=== PATIENT | male | born 1975 | race Hispanic/Latino ===

== ENCOUNTER 2020-08-23 01:11 | Inpatient (IN) | payer MEDICARE, OTHER ==
[~2020-08-23] VITALS: Ht 182.9 cm; Wt 72.1 kg
[2020-08-23] VITALS (16 sets, daily range): BP systolic 104–133; BP diastolic 61–84
[~2020-08-23 01:11] MED LIST: GLIMEPIRIDE4 MG PO; IMIPRAMINE HCL50 MG PO; METFORMIN HCL1000 MG PO; OMEPRAZOLE20 MG PO; PRAVASTATIN SOD40 MG PO; SERTRALINE HCL100 MG PO; TRAZODONE HCL50 MG PO; ZESTRIL20 MG PO
[2020-08-23] MEDS ORDERED: DEXTROSE 50% SYRINGE 50 ML IV ONE ×2 (01:32→02:01)
[2020-08-23] MEDS ORDERED: DEXTROSE 10% 1,000 ML IV STA (01:44)
[2020-08-23] MEDS ORDERED: DEXTROSE 5%/0.45% SOD CHL 1,000 ML IV ONE (01:45)
[2020-08-23 01:58] LABS: BASOPHILS % 0.2 % (0.0-1.0); EOSINOPHILS % 0.4 % (0.0-6.0); HEMATOCRIT 32.8 % (38.2-49.6); HEMOGLOBIN 10.8 g/dL (14.0-18.0); LYMPHOCYTES # (AUTO) 0.8 (1.0-3.2); LYMPHOCYTES % 9.8 % (18.0-39.1); MEAN CORPUSCULAR HGB CONC 32.9 g/dL (31-35); MEAN CORPUSCULAR VOLUME 94.3 fL (81-99); MONOCYTES # (AUTO) 0.5 (0.2-0.8); MONOCYTES % 6.6 % (4.4-11.3); NEUTROPHILS # (AUTO) 6.7 (2.1-6.9); NEUTROPHILS % 81.9 % (38.7-80.0); PLATELET COUNT 54 x10e3/uL (140-360); RED BLOOD COUNT 3.48 x10e6/uL (4.3-5.7); RED CELL DISTRIBUTION WIDTH 14.7 % (11.7-14.4)
[2020-08-23] MEDS ORDERED: DEXTROSE 10% 1,000 ML IV ONE ×3 (01:59→17:22)
[2020-08-23] MEDS ORDERED: ASPIRIN 81 MG CHEW TAB PO ONE (02:00)
[2020-08-23] MEDS ORDERED: DEXTROSE 50% SYRINGE 50 ML IV STA ×2 (02:01)
[2020-08-23] MEDS ORDERED: DEXTROSE 50% SYRINGE 50 ML IV PRN ×2 (02:15→04:45)
[2020-08-23 02:17] LABS: ALANINE AMINOTRANSFERASE 45 IU/L (0-55); ALBUMIN 2.1 g/dL (3.5-5.0); ALBUMIN/GLOBULIN RATIO 0.6 (0.8-2.0); ALKALINE PHOSPHATASE 98 IU/L (40-150); ANION GAP 12.7 mmol/L (8-16); BLOOD UREA NITROGEN 20 mg/dL (7-26); BUN/CREATININE RATIO 18 (6-25); CALCIUM 7.5 mg/dL (8.4-10.2); CARBON DIOXIDE 22 mmol/L (22-29); CHLORIDE 107 mmol/L (98-107); CREATINE KINASE 284 IU/L (30-200); CREATININE, SERUM 1.11 mg/dL (0.72-1.25); EST GLOMERULAR FILTRATION RATE > 60 ML/MIN (60-); GLUCOSE 85 mg/dL (74-118); SODIUM 139 mmol/L (136-145)
[2020-08-23 02:18] LABS: POTASSIUM 2.7 mmol/L (3.5-5.1)
[2020-08-23] MEDS ORDERED: POTASSIUM CHLORIDE 20 MEQ TAB CR PO STA (02:26)
[2020-08-23] MEDS ORDERED: POTASSIUM CHLORIDE 20MEQ/15ML UDC PO ONE (02:30)
[2020-08-23] MEDS ORDERED: POTASSIUM CHLORIDE 10MEQ/100ML 100 ML IV ONE ×2 (02:30→04:15)
[2020-08-23] MEDS ORDERED: LACTULOSE20 GM/30 M PO (02:47)
[2020-08-23] MEDS ORDERED: FUROSEMIDE40 MG PO (02:47)
[2020-08-23] MEDS ORDERED: LACTULOSE SYRUP 20 GM/30 ML UDC ONE (03:26)
[2020-08-23] MEDS ORDERED: LACTULOSE SYRUP 20 GM/30 ML UDC PO ONE (03:30)
[2020-08-23] MEDS: RIFAXIMIN 550 MG TABLET PO SCH ×2 (11:04→21:48)
[2020-08-23] MEDS: CEFTRIAXONE SOD 1 GM/NS 50 ML 50 ML IV SCH (11:04)
[2020-08-23] MEDS: LACTULOSE SYRUP 20 GM/30 ML UDC PO SCH ×2 (11:04→18:13)
[2020-08-23] MEDS: PANTOPRAZOLE SOD 40 MG TABEC PO SCH (11:04)
[2020-08-23] MEDS: OCTREOTIDE ACETATE 0.05 MG/ML AMP SQ SCH ×2 (13:37→18:56)
[2020-08-23 14:13] LABS: INR 1.9; PROTHROMBIN TIME 22.7 seconds (11.9-14.5)
[2020-08-23 14:15] LABS: PARTIAL THROMBOPLASTIN TIME 44.5 seconds (23.8-35.5)
[2020-08-23 14:20] LABS: ANION GAP 9.1 mmol/L (8-16); BLOOD UREA NITROGEN 22 mg/dL (7-26); BUN/CREATININE RATIO 22 (6-25); CALCIUM 7.4 mg/dL (8.4-10.2); CARBON DIOXIDE 24 mmol/L (22-29); CHLORIDE 106 mmol/L (98-107); CREATININE, SERUM 0.98 mg/dL (0.72-1.25); EST GLOMERULAR FILTRATION RATE > 60 ML/MIN (60-); GLUCOSE 108 mg/dL (74-118); MAGNESIUM 1.8 MG/DL (1.3-2.1); PHOSPHORUS 2.5 MG/DL (2.3-4.7); POTASSIUM 3.1 mmol/L (3.5-5.1); SODIUM 136 mmol/L (136-145)
[2020-08-23 14:40] LABS: CREATINE KINASE MB 6.3 ng/mL (0-5.0)
[2020-08-23] MEDS ORDERED: POTASSIUM CHLORIDE 10MEQ EA PO ONE (15:30)
[2020-08-23 16:15] LABS: CLARITY,URINE SL CLOUDY (CLEAR); COLOR,URINE YELLOW (YELLOW); LEUKOCYTE ESTERASE ,URINE NEGATIVE (NEGATIVE); NITRITE,URINE NEGATIVE (NEGATIVE); PROTEIN,URINE DIPSTICK 1+ (NEGATIVE)
[2020-08-23 16:16] LABS: KETONES,URINE NEGATIVE (NEGATIVE); URINE UROBILINOGEN 1 mg/dL (0.2 - 1)
[2020-08-23 16:18] LABS: WBC,URINE (MAN) 0-5 /HPF (0-5)
[2020-08-23 16:19] LABS: BACTERIA,URINE FEW /HPF; EPITHELIAL CELLS,URINE RARE /LPF; RBC,URINE >50 /HPF (0-5)
[2020-08-23] MEDS ORDERED: DEXTROSE 10% 1,000 ML IV SCH (17:30)
[2020-08-23] MEDS: SERTRALINE HCL 100 MG TAB PO SCH (21:48)
[2020-08-24] VITALS (16 sets, daily range): BP systolic 110–148; BP diastolic 65–98
[2020-08-24 05:14] LABS: BASOPHILS % 0.1 % (0.0-1.0); EOSINOPHILS # (AUTO) 0.1 (0.0-0.4); EOSINOPHILS % 1.4 % (0.0-6.0); HEMATOCRIT 32.7 % (38.2-49.6); HEMOGLOBIN 10.7 g/dL (14.0-18.0); LYMPHOCYTES # (AUTO) 1.3 (1.0-3.2); LYMPHOCYTES % 16.5 % (18.0-39.1); MEAN CORPUSCULAR HEMOGLOBIN 30.8 pg (28-32); MEAN CORPUSCULAR HGB CONC 32.7 g/dL (31-35); MEAN CORPUSCULAR VOLUME 94.2 fL (81-99); MONOCYTES # (AUTO) 0.6 (0.2-0.8); MONOCYTES % 7.2 % (4.4-11.3); NEUTROPHILS # (AUTO) 5.7 (2.1-6.9); NEUTROPHILS % 73.5 % (38.7-80.0); PLATELET COUNT 56 x10e3/uL (140-360); RED BLOOD COUNT 3.47 x10e6/uL (4.3-5.7); RED CELL DISTRIBUTION WIDTH 14.8 % (11.7-14.4)
[2020-08-24 05:31] LABS: ALANINE AMINOTRANSFERASE 40 IU/L (0-55); ALBUMIN 1.9 g/dL (3.5-5.0); ALBUMIN/GLOBULIN RATIO 0.5 (0.8-2.0); ALKALINE PHOSPHATASE 90 IU/L (40-150); ANION GAP 8.6 mmol/L (8-16); BLOOD UREA NITROGEN 24 mg/dL (7-26); BUN/CREATININE RATIO 24 (6-25); CALCIUM 7.4 mg/dL (8.4-10.2); CARBON DIOXIDE 26 mmol/L (22-29); CHLORIDE 106 mmol/L (98-107); CREATININE, SERUM 1.02 mg/dL (0.72-1.25); EST GLOMERULAR FILTRATION RATE > 60 ML/MIN (60-); POTASSIUM 3.6 mmol/L (3.5-5.1); SODIUM 137 mmol/L (136-145)
[2020-08-24 05:41] LABS: GLUCOSE 56 mg/dL (74-118)
[2020-08-24] MEDS: OCTREOTIDE ACETATE 0.05 MG/ML AMP SQ SCH ×2 (06:00)
[2020-08-24 06:12] LABS: CREATINE KINASE MB 2.9 ng/mL (0-5.0)
[2020-08-24 06:20] LABS: FERRITIN 121.44 ng/mL (21.81-274.66)
[2020-08-24] MEDS: LACTULOSE SYRUP 20 GM/30 ML UDC PO SCH ×2 (08:38→17:57)
[2020-08-24] MEDS: CEFTRIAXONE SOD 1 GM/NS 50 ML 50 ML IV SCH (08:38)
[2020-08-24] MEDS: PANTOPRAZOLE SOD 40 MG TABEC PO SCH (08:39)
[2020-08-24] MEDS: RIFAXIMIN 550 MG TABLET PO SCH ×2 (08:39→21:14)
[2020-08-24] MEDS ORDERED: POTASSIUM CHLORIDE 10MEQ EA PO SCH (09:00)
[2020-08-24] MEDS: PIPER-TAZ 3.375 GM 50 ML IV SCH ×2 (11:42→17:57)
[2020-08-24] MEDS: DEXTROSE 5% 1,000 ML IV SCH (13:31)
[2020-08-24] MEDS: SERTRALINE HCL 100 MG TAB PO SCH ×2 (21:15→21:16)
[2020-08-25] VITALS (15 sets, daily range): BP systolic 118–138; BP diastolic 73–86
[2020-08-25] MEDS: PIPER-TAZ 3.375 GM 50 ML IV SCH ×4 (00:55→17:21)
[2020-08-25] MEDS: RIFAXIMIN 550 MG TABLET PO SCH ×2 (08:36→21:10)
[2020-08-25] MEDS: LACTULOSE SYRUP 20 GM/30 ML UDC PO SCH ×2 (08:36→17:21)
[2020-08-25] MEDS: PANTOPRAZOLE SOD 40 MG TABEC PO SCH (08:36)
[2020-08-25] MEDS ORDERED: IRON SUCROSE 100 MG in SODIUM CHLORIDE 0.9% 100 ML 100 ML IV SCH (09:00)
[2020-08-25] MEDS: DEXTROSE 5% 1,000 ML IV SCH ×2 (09:53→20:14)
[2020-08-25] MEDS: FUROSEMIDE 40 MG TAB PO SCH (10:33)
[2020-08-25] MEDS: POTASSIUM CHLORIDE 10MEQ EA PO SCH (10:33)
[2020-08-25] MEDS: TRAMADOL HCL 50 MG TAB PO PRN (10:33)
[2020-08-25] MEDS ORDERED: SODIUM CHLORIDE 0.9% 50ML 50 ML ONE (12:43)
[2020-08-25] MEDS ORDERED: IOPAMIDOL 370 MG/ML 200 ML INFUS..BTL INJ ONE (12:44)
[2020-08-25] MEDS: SERTRALINE HCL 100 MG TAB PO SCH (21:10)
[2020-08-26] VITALS (9 sets, daily range): BP systolic 120–127; BP diastolic 63–83
[2020-08-26] MEDS: PIPER-TAZ 3.375 GM 50 ML IV SCH ×2 (06:13)
[2020-08-26] MEDS: TRAMADOL HCL 50 MG TAB PO PRN ×2 (06:21→12:53)
[2020-08-26 06:50] LABS: BASOPHILS % 0.3 % (0.0-1.0); EOSINOPHILS % 0.4 % (0.0-6.0); HEMATOCRIT 30.9 % (38.2-49.6); HEMOGLOBIN 10.1 g/dL (14.0-18.0); LYMPHOCYTES # (AUTO) 0.8 (1.0-3.2); LYMPHOCYTES % 9.6 % (18.0-39.1); MEAN CORPUSCULAR HEMOGLOBIN 30.8 pg (28-32); MEAN CORPUSCULAR HGB CONC 32.7 g/dL (31-35); MEAN CORPUSCULAR VOLUME 94.2 fL (81-99); MONOCYTES # (AUTO) 1.2 (0.2-0.8); MONOCYTES % 15.6 % (4.4-11.3); NEUTROPHILS # (AUTO) 5.5 (2.1-6.9); NEUTROPHILS % 69.4 % (38.7-80.0); RED BLOOD COUNT 3.28 x10e6/uL (4.3-5.7); RED CELL DISTRIBUTION WIDTH 14.8 % (11.7-14.4)
[2020-08-26 07:05] LABS: PLATELET COUNT 46 x10e3/uL (140-360)
[2020-08-26 07:07] LABS: ALANINE AMINOTRANSFERASE 30 IU/L (0-55); ALBUMIN 1.8 g/dL (3.5-5.0); ALBUMIN/GLOBULIN RATIO 0.5 (0.8-2.0); ALKALINE PHOSPHATASE 134 IU/L (40-150); ANION GAP 9.6 mmol/L (8-16); BLOOD UREA NITROGEN 19 mg/dL (7-26); BUN/CREATININE RATIO 17 (6-25); CALCIUM 7.3 mg/dL (8.4-10.2); CARBON DIOXIDE 24 mmol/L (22-29); CHLORIDE 104 mmol/L (98-107); CHOL/HDL RATIO 3.8 (3.9-4.7); CHOLESTEROL 87 MD/DL (0-199); CREATININE, SERUM 1.13 mg/dL (0.72-1.25); EST GLOMERULAR FILTRATION RATE > 60 ML/MIN (60-); GLUCOSE 107 mg/dL (74-118); HDL CHOLESTEROL 23 MG/DL (40-60); LDL CHOLESTEROL 50 MG/DL (60-130); POTASSIUM 3.6 mmol/L (3.5-5.1); SODIUM 134 mmol/L (136-145); TRIGLYCERIDES 70 MG/DL (0-149)
[2020-08-26] MEDS ORDERED: VANCOMYCIN 1GM/NS 250 ML 250 ML IV ONE (07:30)
[2020-08-26] MEDS ORDERED: IBUPROFEN 200 MG TAB PO PRN (07:30)
[2020-08-26] MEDS: FUROSEMIDE 40 MG TAB PO SCH (08:02)
[2020-08-26] MEDS: PANTOPRAZOLE SOD 40 MG TABEC PO SCH (08:02)
[2020-08-26] MEDS: LACTULOSE SYRUP 20 GM/30 ML UDC PO SCH ×2 (08:02→16:27)
[2020-08-26] MEDS: POTASSIUM CHLORIDE 10MEQ EA PO SCH (08:02)
[2020-08-26] MEDS: RIFAXIMIN 550 MG TABLET PO SCH ×2 (08:02→20:34)
[2020-08-26] MEDS ORDERED: SPIRONOLACTONE 25 MG TAB PO SCH (09:00)
[2020-08-26] MEDS ORDERED: IBUPROFEN 400 MG TAB PO PRN (10:15)
[2020-08-26] MEDS ORDERED: FUROSEMIDE INJ 10 MG/ML 4 ML VIAL IV SCH (12:00)
[2020-08-26] MEDS: VANCOMYCIN 1GM/NS 250 ML 250 ML IV SCH (20:30)
[2020-08-26] MEDS: SERTRALINE HCL 100 MG TAB PO SCH (20:34)
[2020-08-27] VITALS (8 sets, daily range): BP systolic 101–134; BP diastolic 63–81
[2020-08-27 02:59] LABS: CLARITY,URINE CLOUDY (CLEAR); COLOR,URINE AMBER (YELLOW); KETONES,URINE TRACE (NEGATIVE); LEUKOCYTE ESTERASE ,URINE NEGATIVE (NEGATIVE); NITRITE,URINE NEGATIVE (NEGATIVE); PROTEIN,URINE DIPSTICK 2+ (NEGATIVE); URINE UROBILINOGEN 0.2 mg/dL (0.2 - 1)
[2020-08-27 03:21] LABS: BACTERIA,URINE MANY /HPF; EPITHELIAL CELLS,URINE FEW /LPF; RBC,URINE >50 /HPF (0-5)
[2020-08-27 07:01] LABS: BASOPHILS % 0.3 % (0.0-1.0); EOSINOPHILS # (AUTO) 0.1 (0.0-0.4); EOSINOPHILS % 1.5 % (0.0-6.0); HEMATOCRIT 30.5 % (38.2-49.6); HEMOGLOBIN 9.9 g/dL (14.0-18.0); LYMPHOCYTES # (AUTO) 0.7 (1.0-3.2); LYMPHOCYTES % 9.4 % (18.0-39.1); MEAN CORPUSCULAR HGB CONC 32.5 g/dL (31-35); MEAN CORPUSCULAR VOLUME 95.6 fL (81-99); MONOCYTES # (AUTO) 0.8 (0.2-0.8); MONOCYTES % 11.2 % (4.4-11.3); NEUTROPHILS # (AUTO) 5.6 (2.1-6.9); NEUTROPHILS % 76.1 % (38.7-80.0); RED BLOOD COUNT 3.19 x10e6/uL (4.3-5.7); RED CELL DISTRIBUTION WIDTH 14.7 % (11.7-14.4)
[2020-08-27 07:08] LABS: PLATELET COUNT 41 x10e3/uL (140-360)
[2020-08-27 07:22] LABS: ANION GAP 10.7 mmol/L (8-16); BLOOD UREA NITROGEN 22 mg/dL (7-26); BUN/CREATININE RATIO 19 (6-25); CALCIUM 7.4 mg/dL (8.4-10.2); CARBON DIOXIDE 24 mmol/L (22-29); CHLORIDE 103 mmol/L (98-107); CREATININE, SERUM 1.13 mg/dL (0.72-1.25); EST GLOMERULAR FILTRATION RATE > 60 ML/MIN (60-); GLUCOSE 69 mg/dL (74-118); POTASSIUM 3.7 mmol/L (3.5-5.1); SODIUM 134 mmol/L (136-145)
[2020-08-27] MEDS ORDERED: ACETAMINOPHEN 325 MG TAB PO PRN (08:15)
[2020-08-27] MEDS: VANCOMYCIN 1GM/NS 250 ML 250 ML IV SCH ×2 (08:41→20:36)
[2020-08-27] MEDS: FUROSEMIDE INJ 10 MG/ML 4 ML VIAL IV SCH ×2 (08:41→17:33)
[2020-08-27] MEDS: SPIRONOLACTONE 25 MG TAB PO SCH ×2 (08:41→12:09)
[2020-08-27] MEDS: IRON-VITAMIN-MINERAL CAPSULE PO SCH ×2 (08:41→17:33)
[2020-08-27] MEDS: LACTULOSE SYRUP 20 GM/30 ML UDC PO SCH ×2 (08:42→17:33)
[2020-08-27] MEDS: RIFAXIMIN 550 MG TABLET PO SCH ×2 (08:42→20:36)
[2020-08-27] MEDS: PANTOPRAZOLE SOD 40 MG TABEC PO SCH (08:42)
[2020-08-27] MEDS: POTASSIUM CHLORIDE 10MEQ EA PO SCH (08:42)
[2020-08-27] MEDS: CEFTRIAXONE SOD 1 GM/NS 50 ML 50 ML IV SCH (08:51)
[2020-08-27] MEDS: SERTRALINE HCL 100 MG TAB PO SCH (20:41)
[2020-08-28] VITALS (12 sets, daily range): BP systolic 107–125; BP diastolic 64–77
[2020-08-28] MEDS: FUROSEMIDE INJ 10 MG/ML 4 ML VIAL IV SCH ×4 (01:09→22:05)
[2020-08-28 06:27] LABS: ANION GAP 11.5 mmol/L (8-16); BLOOD UREA NITROGEN 22 mg/dL (7-26); BUN/CREATININE RATIO 19 (6-25); CALCIUM 7.1 mg/dL (8.4-10.2); CARBON DIOXIDE 21 mmol/L (22-29); CHLORIDE 103 mmol/L (98-107); CREATININE, SERUM 1.18 mg/dL (0.72-1.25); EST GLOMERULAR FILTRATION RATE > 60 ML/MIN (60-); GLUCOSE 93 mg/dL (74-118); POTASSIUM 3.5 mmol/L (3.5-5.1); SODIUM 132 mmol/L (136-145)
[2020-08-28] MEDS: CEFTRIAXONE SOD 1 GM/NS 50 ML 50 ML IV SCH (07:38)
[2020-08-28] MEDS: TRAMADOL HCL 50 MG TAB PO PRN ×3 (07:46→14:57)
[2020-08-28] MEDS: VANCOMYCIN 1GM/NS 250 ML 250 ML IV SCH (08:25)
[2020-08-28] MEDS: SPIRONOLACTONE 25 MG TAB PO SCH ×2 (08:25→11:04)
[2020-08-28] MEDS: POTASSIUM CHLORIDE 10MEQ EA PO SCH (08:26)
[2020-08-28] MEDS: RIFAXIMIN 550 MG TABLET PO SCH ×2 (08:26→22:05)
[2020-08-28] MEDS: IRON-VITAMIN-MINERAL CAPSULE PO SCH ×2 (08:26→16:15)
[2020-08-28] MEDS: LACTULOSE SYRUP 20 GM/30 ML UDC PO SCH ×2 (08:26→16:15)
[2020-08-28] MEDS: PANTOPRAZOLE SOD 40 MG TABEC PO SCH (08:26)
[2020-08-28] MEDS ORDERED: PIPER-TAZ 3.375 GM 50 ML IV SCH (10:00)
[2020-08-28] MEDS: MIDODRINE HCL 5 MG TABLET PO SCH ×2 (11:04→16:15)
[2020-08-28] MEDS ORDERED: CEFTRIAXONE SOD 1 GM/NS 50 ML 50 ML IV SCH (12:00)
[2020-08-28] MEDS: SERTRALINE HCL 100 MG TAB PO SCH (22:05)
[2020-08-29] VITALS (7 sets, daily range): BP systolic 109–122; BP diastolic 65–75
[2020-08-29 05:00] LABS: ANION GAP 12.6 mmol/L (8-16); BLOOD UREA NITROGEN 21 mg/dL (7-26); BUN/CREATININE RATIO 19 (6-25); CALCIUM 7.1 mg/dL (8.4-10.2); CARBON DIOXIDE 22 mmol/L (22-29); CHLORIDE 104 mmol/L (98-107); CREATININE, SERUM 1.11 mg/dL (0.72-1.25); EST GLOMERULAR FILTRATION RATE > 60 ML/MIN (60-); GLUCOSE 91 mg/dL (74-118); POTASSIUM 3.6 mmol/L (3.5-5.1); SODIUM 135 mmol/L (136-145)
[2020-08-29] MEDS: FUROSEMIDE INJ 10 MG/ML 4 ML VIAL IV SCH ×3 (05:01→21:36)
[2020-08-29 05:16] LABS: MAGNESIUM 1.9 MG/DL (1.3-2.1); PHOSPHORUS 3.3 MG/DL (2.3-4.7)
[2020-08-29] MEDS ORDERED: PIPER-TAZ 3.375 GM 50 ML IV SCH (08:00)
[2020-08-29] MEDS ORDERED: VANCOMYCIN 1GM/NS 250 ML 250 ML IV SCH (09:00)
[2020-08-29] MEDS ORDERED: CEFTRIAXONE SOD 1 GM/NS 50 ML 50 ML IV SCH (09:00)
[2020-08-29] MEDS: LACTULOSE SYRUP 20 GM/30 ML UDC PO SCH ×2 (10:08→17:02)
[2020-08-29] MEDS: IRON-VITAMIN-MINERAL CAPSULE PO SCH ×2 (10:08→17:02)
[2020-08-29] MEDS: SPIRONOLACTONE 25 MG TAB PO SCH ×2 (10:08→13:13)
[2020-08-29] MEDS: RIFAXIMIN 550 MG TABLET PO SCH ×2 (10:08→21:36)
[2020-08-29] MEDS: MIDODRINE HCL 5 MG TABLET PO SCH ×3 (10:08→17:02)
[2020-08-29] MEDS: POTASSIUM CHLORIDE 10MEQ EA PO SCH (10:08)
[2020-08-29] MEDS: PANTOPRAZOLE SOD 40 MG TABEC PO SCH (10:08)
[2020-08-29] MEDS: TRAMADOL HCL 50 MG TAB PO PRN ×2 (10:14→17:18)
[2020-08-29] MEDS: CLINDAMYCIN 600MG / 50ML 50 ML IV SCH ×2 (13:13→21:36)
[2020-08-29] MEDS: SERTRALINE HCL 100 MG TAB PO SCH (21:36)
[2020-08-29] MEDS ORDERED: ONDANSETRON HCL INJ 2MG/ML 2ML 2 MG/ML VIAL IV PRN (22:15)
[2020-08-30] VITALS (9 sets, daily range): BP systolic 99–122; BP diastolic 56–75
[2020-08-30] MEDS: CLINDAMYCIN 600MG / 50ML 50 ML IV SCH ×3 (05:54→22:08)
[2020-08-30 06:18] LABS: BASOPHILS % 0.3 % (0.0-1.0); EOSINOPHILS # (AUTO) 0.1 (0.0-0.4); EOSINOPHILS % 0.7 % (0.0-6.0); HEMATOCRIT 29.5 % (38.2-49.6); HEMOGLOBIN 9.7 g/dL (14.0-18.0); LYMPHOCYTES # (AUTO) 0.9 (1.0-3.2); LYMPHOCYTES % 7.1 % (18.0-39.1); MEAN CORPUSCULAR HEMOGLOBIN 31.4 pg (28-32); MEAN CORPUSCULAR HGB CONC 32.9 g/dL (31-35); MEAN CORPUSCULAR VOLUME 95.5 fL (81-99); MONOCYTES % 7.9 % (4.4-11.3); NEUTROPHILS # (AUTO) 10.7 (2.1-6.9); NEUTROPHILS % 82.9 % (38.7-80.0); RED BLOOD COUNT 3.09 x10e6/uL (4.3-5.7); RED CELL DISTRIBUTION WIDTH 14.8 % (11.7-14.4)
[2020-08-30 06:38] LABS: ANION GAP 10.8 mmol/L (8-16); BLOOD UREA NITROGEN 21 mg/dL (7-26); BUN/CREATININE RATIO 19 (6-25); CALCIUM 7.1 mg/dL (8.4-10.2); CARBON DIOXIDE 24 mmol/L (22-29); CHLORIDE 104 mmol/L (98-107); CREATININE, SERUM 1.12 mg/dL (0.72-1.25); EST GLOMERULAR FILTRATION RATE > 60 ML/MIN (60-); GLUCOSE 103 mg/dL (74-118); POTASSIUM 3.8 mmol/L (3.5-5.1); SODIUM 135 mmol/L (136-145)
[2020-08-30 06:56] LABS: PLATELET COUNT 59 x10e3/uL (140-360)
[2020-08-30] MEDS: FUROSEMIDE INJ 10 MG/ML 4 ML VIAL IV SCH ×3 (07:12→22:08)
[2020-08-30 08:14] LABS: ANISOCYTOSIS SLIGHT; PLATELET ESTIMATE MARKEDLY DECREASED; PLATELET MORPHOLOGY COMMENT RARE EDTA CLUMPING; RBC MORPHOLOGY COMMENT NORMAL
[2020-08-30] MEDS ORDERED: TRAMADOL HCL 50 MG TAB PO PRN (08:45)
[2020-08-30] MEDS: RIFAXIMIN 550 MG TABLET PO SCH ×2 (09:00→22:08)
[2020-08-30] MEDS: IRON-VITAMIN-MINERAL CAPSULE PO SCH ×2 (09:28→16:47)
[2020-08-30] MEDS: SPIRONOLACTONE 25 MG TAB PO SCH ×2 (09:28→14:19)
[2020-08-30] MEDS: POTASSIUM CHLORIDE 10MEQ EA PO SCH (09:28)
[2020-08-30] MEDS: PANTOPRAZOLE SOD 40 MG TABEC PO SCH (09:28)
[2020-08-30] MEDS: LACTULOSE SYRUP 20 GM/30 ML UDC PO SCH ×2 (09:28→16:47)
[2020-08-30] MEDS: MIDODRINE HCL 5 MG TABLET PO SCH ×3 (09:28→16:47)
[2020-08-30] MEDS: SERTRALINE HCL 100 MG TAB PO SCH (22:08)
[2020-08-31] VITALS: BP 98/61
[2020-08-31 04:00] VITALS: BP 123/76
[2020-08-31 05:51] LABS: BASOPHILS # (AUTO) 0.1 (0.0-0.1); BASOPHILS % 0.4 % (0.0-1.0); EOSINOPHILS # (AUTO) 0.1 (0.0-0.4); EOSINOPHILS % 0.6 % (0.0-6.0); HEMATOCRIT 30.9 % (38.2-49.6); HEMOGLOBIN 10.1 g/dL (14.0-18.0); LYMPHOCYTES # (AUTO) 1.2 (1.0-3.2); LYMPHOCYTES % 8.8 % (18.0-39.1); MEAN CORPUSCULAR HEMOGLOBIN 31.4 pg (28-32); MEAN CORPUSCULAR HGB CONC 32.7 g/dL (31-35); MONOCYTES # (AUTO) 1.2 (0.2-0.8); MONOCYTES % 9.4 % (4.4-11.3); NEUTROPHILS # (AUTO) 10.2 (2.1-6.9); NEUTROPHILS % 78.7 % (38.7-80.0); PLATELET COUNT 83 x10e3/uL (140-360); RED BLOOD COUNT 3.22 x10e6/uL (4.3-5.7); RED CELL DISTRIBUTION WIDTH 14.6 % (11.7-14.4)
[2020-08-31] MEDS: FUROSEMIDE INJ 10 MG/ML 4 ML VIAL IV SCH ×2 (05:51→14:14)
[2020-08-31] MEDS: CLINDAMYCIN 600MG / 50ML 50 ML IV SCH ×2 (05:51→14:07)
[2020-08-31 06:18] LABS: ANION GAP 8.9 mmol/L (8-16); BLOOD UREA NITROGEN 22 mg/dL (7-26); BUN/CREATININE RATIO 19 (6-25); CALCIUM 7.1 mg/dL (8.4-10.2); CARBON DIOXIDE 22 mmol/L (22-29); CHLORIDE 105 mmol/L (98-107); CREATININE, SERUM 1.14 mg/dL (0.72-1.25); EST GLOMERULAR FILTRATION RATE > 60 ML/MIN (60-); GLUCOSE 101 mg/dL (74-118); POTASSIUM 3.9 mmol/L (3.5-5.1); SODIUM 132 mmol/L (136-145)
[2020-08-31 08:00] VITALS: BP 116/71
[2020-08-31] MEDS: MIDODRINE HCL 5 MG TABLET PO SCH ×2 (10:41→12:35)
[2020-08-31] MEDS: SPIRONOLACTONE 25 MG TAB PO SCH ×2 (10:41→12:35)
[2020-08-31] MEDS: IRON-VITAMIN-MINERAL CAPSULE PO SCH (10:41)
[2020-08-31] MEDS: POTASSIUM CHLORIDE 10MEQ EA PO SCH (10:42)
[2020-08-31] MEDS: LACTULOSE SYRUP 20 GM/30 ML UDC PO SCH (10:42)
[2020-08-31] MEDS: PANTOPRAZOLE SOD 40 MG TABEC PO SCH (10:42)
[2020-08-31] MEDS: RIFAXIMIN 550 MG TABLET PO SCH (10:42)
[2020-08-31 12:00] VITALS: BP 121/73
== END 2020-08-31 15:15 | disposition home or self-care (01) | DRG 637 ==
LOC: ER 01:17 → ERHOLD 03:56 → ICU 04:30 → MED/SURG 08-24 14:34
PROVIDERS: ADMIT Internal Medicine; ATTEND Internal Medicine
DX: E11.649 Type 2 diabetes mellitus with hypoglycemia without coma (principal); K72.00 Acute and subacute hepatic failure without coma; L03.116 Cellulitis of left lower limb; K74.60 Unspecified cirrhosis of liver; T37.1X1A Poisoning by antimycobacterial drugs, accidental (unintentional), initial encounter; I89.0 Lymphedema, not elsewhere classified; E87.8 Other disorders of electrolyte and fluid balance, not elsewhere classified; I95.1 Orthostatic hypotension; K75.81 Nonalcoholic steatohepatitis (NASH); Z20.828 Contact with and (suspected) exposure to other viral communicable diseases; E66.01 Morbid (severe) obesity due to excess calories; Z68.21 Body mass index [BMI] 21.0-21.9, adult; D69.6 Thrombocytopenia, unspecified; F79 Unspecified intellectual disabilities
CPT/HCPCS: 36415; 36569; 70450; 71045; 74170; 76700; 80048; 80053; 80061; 80202; 81001; 82105; 82140; 82550; 82553; 82607; 82728; 82746; 82948; 83036; 83540; 83605; 83690; 83735; 83880; 84100; 84443; 84466; 84484; 85025; 85045; 85610; 85730; 86039; 87040; 87086; 93970; 94660; 97139; 99284; J0696; J1756; J1940; J2354; J2405; J2543; J3370; J3480; J7070; J7799; Q9967; U0002